=== PATIENT | male | born 1995 | race Asian ===

== ENCOUNTER 2021-11-21 22:04 | Emergency (ER) | payer OTHER ==
[~2021-11-21] VITALS: Ht 180.3 cm; Wt 68.0 kg
[2021-11-21 22:38] VITALS: BP 133/84
[2021-11-21 23:20] LABS: APPEARANCE,URINE CLEAR (CLEAR); BILIRUBIN,URINE NEGATIVE (NEGATIVE); BLOOD, URINE 3+ (NEGATIVE); COLOR,URINE DARK YELLOW (YELLOW); LEUKOCYTE ESTERASE ,URINE NEGATIVE (NEGATIVE); NITRITE, URINE NEGATIVE (NEGATIVE); PH,URINE 7.5 (5.0-9.0); UGLUCOSE NEGATIVE (NEGATIVE)
[2021-11-21 23:45] LABS: RBC,URINE >100 /HPF (0-5); WBC,URINE 0-5 /HPF (0-5)
[2021-11-22 00:11] LABS: BASOPHILS % (AUTO) 0.8 % (0.0-2.0); EOSINOPHILS # (AUTO) 0.3 K/uL (0-0.4); HEMATOCRIT 45.4 % (36-52); LYMPHOCYTES # (AUTO) 1.6 K/uL (2.0-11.5); LYMPHOCYTES % (AUTO) 24.1 % (20.5-51.1); MEAN CORPUSCULAR HEMOGLOBIN 33 pg (27-31); MEAN CORPUSCULAR HGB CONC 35 g/dL (33-37); MEAN CORPUSCULAR VOLUME 92.4 fL (80-94); MONOCYTES # (AUTO) 0.5 K/uL (0.8-1.0); MONOCYTES % (AUTO) 7.6 % (1.7-9.3); NEUTROPHILS # (AUTO) 4.2 K/uL (1.8-7.7); NEUTROPHILS % (AUTO) 63.5 % (42.2-75.2); PLATELET COUNT (AUTO) 255 K/uL (140-450); RED BLOOD CELL COUNT(AUTO) 4.92 MIL/uL (4.20-6.10); WHITE BLOOD COUNT (AUTO) 6.6 K/uL (4.8-10.8)
[2021-11-22 00:29] LABS: ALBUMIN 4.3 g/dL (3.4-5.0); ANION GAP 6.3 (8-16); CARBON DIOXIDE 33.5 mmol/L (21-32); CREATININE 0.7 mg/dL (0.6-1.3); POTASSIUM 3.8 mmol/L (3.5-5.1); TOTAL BILIRUBIN 0.9 mg/dL (0.0-1.0)
--- NOTE | 2021-11-22 01:38 | NUR ---
pt taken to bed 11
--- NOTE | 2021-11-22 01:39 | NUR ---
US at bedside.
--- NOTE | 2021-11-22 02:08 | NUR ---
26 yo/m presents to ED c/o dark brown urine/cloudy later turning red, + pelvic discomfort 1/10 acheing, since this morning, + chills. Pt denies any fevers chills, n/v/d, burning urination/ frequency. pmh: denies allergies: denies
[2021-11-22 02:55] VITALS: BP 133/81
--- NOTE | 2021-11-22 02:55 | NUR ---
Patient discharged with v/s stable. Written and verbal after care instructions given and explained. Patient verbalized understanding. Ambulatory with steady gait. All questions addressed prior to discharge. Advised to follow up with PMD.
== END 2021-11-22 02:55 | disposition home or self-care (01) ==
LOC: MED 22:04
DX: R31.9 Hematuria, unspecified (principal); E86.0 Dehydration
CPT/HCPCS: 36415; 76770; 80053; 81001; 85025; 99284; Q0092